=== PATIENT | male | born 1985 | race Hispanic/Latino ===

== ENCOUNTER 2018-12-25 17:02 | Emergency (ER) | payer SELFPAY ==
[2018-12-25 17:52] LABS: #Basophils 0.1 thou/uL (0.0-0.2); #Eosinphils 0.4 thou/uL (0.0-0.7); #Lymphocytes 3.3 thou/uL (1.20-3.40); #Monocytes 0.8 thou/uL (0.11-0.59); #Neutrophils 5.6 thou/uL (1.40-6.50); %Basophils 1.1 % (0.0-1.0); %Eosinophils 3.7 % (0.0-10.0); %Lymphocytes 32.3 % (21.0-51.0); %Monocytes 7.6 % (0.0-10.0); %Neutrophils 55.3 % (42.0-75.0); Hemoglobin 13.4 g/dL (14.0-18.0); Mean Corpuscular HGB CONC 33.6 g/dL (32.0-36.0); Mean Corpuscular Hemoglobin 29.9 pg (27.0-31.0); Mean Platelet Volume 6.6 fL (7.4-10.4); Platelet Count 380 thou/uL (130-400); RBC Distribution Width 14.1 % (11.5-14.5); Red Blood Cell (RBC) Count 4.48 mill/uL (4.70-6.10); White Blood Cell (WBC) Count 10.1 thou/uL (4.8-10.8)
[2018-12-25 18:12] LABS: Anion Gap 18 mmol/L (10-20); BUN (Urea Nitrogen) 28 mg/dL (8.9-20.6); Calc. Creatinine Clearance 0 mL/min (70-130); Calcium 10.2 mg/dL (7.8-10.44); Carbon Dioxide 22 mmol/L (22-29); Chloride 102 mmol/L (98-107); Estimated GFR-MDRD 67; Glucose 144 mg/dL (70-105); Potassium 3.6 mmol/L (3.5-5.1); Sodium 138 mmol/L (136-145)
--- NOTE | 2018-12-25 18:43 | CT ---
EXAM: CT of the neck with contrast CT of the chest with contrast HISTORY: Patient has a tracheostomy which recently came out. He states he has to change his posture t o be able to breathe. COMPARISON: None TECHNIQUE: 1. Multiple contiguous axial images were obtained in a CT the chest with contrast. Coronal and sagitt al reformats were performed. 2. Multiple contiguous axial images were obtained and a CT of the neck with contrast. Sagittal and co deb reformats were performed. FINDINGS: CT NECK: There is an area of subglottic narrowing of the airway approximately 2.3 cm in length. There is appro ximately 50% luminal narrowing in this location. No tracheostomy tract can be seen to the skin surface. No mucosal abnormality is seen in the nasopharynx, oropharynx, hypopharynx, or subglottic regions. No cervical adenopathy is seen. The salivary glands are symmetric without focal abnormality. The thyroid is unremarkable. No osseous abnormality is seen in the cervical spine. The visualized intracranial structures are unremarkable. CT CHEST: HEART: Normal in size without focal cardiac abnormality MEDIASTINUM: No hilar or mediastinal lymphadenopathy. LUNGS: No focal infiltrates, nodules, or masses. PLEURAL SPACE: No pneumothorax or pleural effusion. CHEST WALL SOFT TISSUES: Unremarkable OSSEOUS STRUCTURES: No acute abnormality. A PEG tube is seen in the stomach. The other visualized subdiaphragmatic structures are unremarkable. IMPRESSION: Area of subglottic narrowing in the trachea as above.
== END 2018-12-25 19:30 | disposition home or self-care (01) ==
LOC: ERS 17:02
DX: J95.03 Malfunction of tracheostomy stoma (principal); E11.9 Type 2 diabetes mellitus without complications; I10 Essential (primary) hypertension; F17.210 Nicotine dependence, cigarettes, uncomplicated; Z79.899 Other long term (current) drug therapy
CPT/HCPCS: 36415; 70491; 71260; 80048; 85025

== ENCOUNTER 2019-07-23 06:29 | Emergency (ER) | payer OTHER, SELFPAY ==
[2019-07-23] MEDS ORDERED: Sodium Chloride For Inhalation 0.9% 3 ML NEB ONE (06:58)
[2019-07-23] MEDS ORDERED: HYDROcodone/Acetaminophen 5/325 mg Tablet ONE (07:14)
--- NOTE | 2019-07-23 07:25 | RAD ---
EXAM: Chest PA and lateral: HISTORY: Cough. Phlegm and trachea. Previous trauma. COMPARISON: 01/06/2019 FINDINGS: Tracheostomy appears to be appropriately position. Heart: Normal cardiac silhouette Aorta: Unremarkable Pulmonary vessels: Normal Costophrenic angles: There is no pleural fluid. There appears be a pleural-based mass along the infer ior lateral right hemithorax. Lungs: No consolidation or masses. Pneumothorax: No pneumothorax Osseous structures: No osseous abnormalities IMPRESSION: 1. Appropriate position of a tracheostomy 2. Pleural-based mass on the lateral lower right hemithorax is suspected. Better interrogation with c hest CT may be beneficial.
[2019-07-23 08:12] LABS: #Eosinphils 0.1 thou/uL (0.0-0.7); #Lymphocytes 2.8 thou/uL (1.20-3.40); #Monocytes 0.7 thou/uL (0.11-0.59); #Neutrophils 7.8 thou/uL (1.40-6.50); %Basophils 0.4 % (0.0-1.0); %Eosinophils 0.8 % (0.0-10.0); %Lymphocytes 24.2 % (21.0-51.0); %Monocytes 5.7 % (0.0-10.0); %Neutrophils 68.8 % (42.0-75.0); Hemoglobin 13.6 g/dL (14.0-18.0); Mean Corpuscular HGB CONC 33.6 g/dL (32.0-36.0); Mean Corpuscular Hemoglobin 27.4 pg (27.0-31.0); Mean Corpuscular Volume 81.7 fL (78.0-98.0); Mean Platelet Volume 7.5 fL (7.4-10.4); Platelet Count 301 thou/uL (130-400); RBC Distribution Width 14.1 % (11.5-14.5); Red Blood Cell (RBC) Count 4.97 mill/uL (4.70-6.10); White Blood Cell (WBC) Count 11.3 thou/uL (4.8-10.8)
[2019-07-23 08:19] LABS: ALT (SGPT) 20 U/L (8-55); AST (SGOT) 21 U/L (5-34); Albumin 4.2 g/dL (3.5-5.0); Alkaline Phosphatase 83 U/L (40-110); Anion Gap 13 mmol/L (10-20); BUN (Urea Nitrogen) 13 mg/dL (8.9-20.6); Bilirubin, Total 0.3 mg/dL (0.2-1.2); Calc. Creatinine Clearance 0 mL/min (70-130); Calcium 9.3 mg/dL (7.8-10.44); Carbon Dioxide 20 mmol/L (22-29); Chloride 107 mmol/L (98-107); Estimated GFR-MDRD Greater than 90; Globulin 4.3 g/dL (2.4-3.5); Glucose 126 mg/dL (70-105); Potassium 3.4 mmol/L (3.5-5.1); Protein, Total 8.5 g/dL (6.0-8.3); Sodium 137 mmol/L (136-145)
--- NOTE | 2019-07-23 08:35 | CT ---
CT CHEST WITHOUT CONTRAST: Date: 07/23/2019 INDICATION: Rib pain. Chest x-ray today revealed a pleural based mass in the lower lateral right hemithorax. Comparison made to chest CT of 12/25/2018. FINDINGS: There is a healing fracture involving the posterolateral right 8th rib with a large amount of surroun ding callus. This accounts for the pleural based density seen on today's chest x-ray. The right ribs otherwise appear unremarkable. The lung castano are clear. There is no evidence of infiltrate or effusion. No pulmonary mass. Some mi nimal atelectasis in the posterior lung bases. Mediastinum unremarkable with nonspecific lymph nodes which appear stable. Upper abdomen unremarkable . IMPRESSION: 1. A mildly displaced fracture posterolateral right 8th rib with a large amount of surrounding callu s which produces some pleural thickening. This accounts for the pleural based mass seen on chest x-ra y. 2. Chest is otherwise unremarkable. POS: [facility]
[2019-07-23] MEDS ORDERED: Lidocaine 5% Patch TD SCH (10:00)
[2019-07-23] MEDS ORDERED: Iopamidol-370 76% 500 ML 1 ML ONE (11:36)
[2019-07-23] MEDS ORDERED: Lidocaine Patch Removal 1 EACH TOP SCH (22:00)
--- NOTE | 2019-07-27 09:48 | EKG ---
Test Reason : Blood Pressure : / mmHG Vent. Rate : 077 BPM Atrial Rate : 077 BPM P-R Int : 154 ms QRS Dur : 096 ms QT Int : 402 ms P-R-T Axes : 015 -01 025 degrees QTc Int : 454 ms Normal sinus rhythm Minimal voltage criteria for LVH, may be normal variant Borderline ECG Confirmed by SYEDA MCKEON DO ([id number]), editorial assistant LATRELL CORDOVA ([id number]) on 07/27/2019 9:48:17 AM Referred By: MIKE Confirmed By:SYEDA MCKEON DO
== END 2019-07-23 09:54 | disposition home or self-care (01) ==
LOC: ERS 06:29
DX: R07.81 Pleurodynia (principal); R05 Cough; E11.9 Type 2 diabetes mellitus without complications; I10 Essential (primary) hypertension; Z79.84 Long term (current) use of oral hypoglycemic drugs
CPT/HCPCS: 36415; 71046; 71260; 80053; 85025; 93005; Q9967